=== PATIENT | female | born 1940 | race Caucasian/White ===

== ENCOUNTER → 2016-12-19 | Outpatient (CLI) | payer MEDICARE ==
[~2016-12-19] MED LIST: ACID REDUCER PO; ALLERGY RELIEF25 M2 PO; ALLERGY10 M1 PO; AMLODIPINE BESYL5 MG PO; CALCIUM 300 MG PO; COZAAR100 MG PO; FLAGYL250 M1 PO; HYDROCODON-ACE1 EACH PO; HYDROXYZINE HCL10 MG PO; IBUPROFEN800 MG PO; LEVAQUIN250 MG PO; LIPITOR PO; LIPITOR40 MG PO; PRIMIDONE50 MG PO; SLEEP AID50 MG PO; STOOL SOFTENER50 MG PO; TRAZODONE HCL100 MG PO; WOMEN'S DAILY F1 TAB PO; WOMEN'S DAILY1 EACH PO; ZANTAC150 M1 PO
--- NOTE | ~2016-12-19 | CT4 ---
[facility] A Service of [facility] RADIOLOGY TEXT RESULTS PATIENT: JOHANN GRIMM LOCATION: [facility] : 42 UNIT #: [id number] AGE: [address]: Cm Oliva MD SEX: F ORDER DR: [id number] [facility] [address] [place], [place] [address] [id number] O MR#: [id number] Acc #: [id number] NAME: JOHANN GRIMM : 1940 SEX: F STUDY DATE/TIME: 12/19/2016 9:48 UNIT: [facility] ROOM: STUDY DESCRIPTION: CT Abd and Pelv Wo Cont Attending Physician: Cm Oliva M.D. Referring Physician: Cm Oliva M.D. Ordering Physician: Cm Oliva M.D. Primary Care Physician: Aureliano Fernandez M.D. MEDICAL IMAGING REPORT This report is preliminary unless electronic signature is present EXAM CT abdomen and pelvis without contrast. INDICATIONS Right flank pain for 2 months, history of kidney stones. TECHNIQUE CT of the abdomen and pelvis was performed without contrast. Coronal and sagittal reformatted images were obtained. This CT exam was performed with one or more of the following radiation dose reduction techniques: automatic exposure control, adjustment of mA and/or kV according to patient size, and iterative reconstruction. COMPARISON 03/12/2011. FINDINGS The lung bases are clear. The liver, gallbladder and spleen are unremarkable. There is no evidence for renal stone. No hydronephrosis. The adrenal glands and pancreas are unremarkable. Extensive atherosclerotic calcification of the infrarenal abdominal aorta but no evidence for aneurysm. Pelvis: Diverticulosis of the sigmoid, but no evidence for diverticulitis. There is scattered diverticula elsewhere. The appendix is normal. No free fluid. Limited imaging of the upper abdomen demonstrates degenerative changes of the lower lumbar spine. IMPRESSION 1. No evidence for renal stone. 2. Colonic diverticulosis. Dictated by... [facility] A Service of [facility] RADIOLOGY TEXT RESULTS PATIENT: JOHANN GRIMM LOCATION: [facility] : 42 UNIT #: [id number] AGE: [address]: Cm Oliva MD SEX: F ORDER DR: Bryan Greco M.D. THIS IS AN ELECTRONICALLY VERIFIED REPORT Bryan Greco M.D. at 12/20/2016 5:10 PM ARS/maritza TD: 12/19/2016 13:11 JOB #: [id number] MEDICAL IMAGING REPORT Page 1 of 1 COPY
== END | disposition home or self-care (01) ==
LOC: CCAT 09:00
DX: R10.31 Right lower quadrant pain (principal); K57.30 Diverticulosis of large intestine without perforation or abscess without bleeding
CPT/HCPCS: 74176